=== PATIENT | female | born 1990 | race Caucasian/White ===

== ENCOUNTER 2019-02-22 08:52 | Emergency (ER) | payer OTHER ==
[~2019-02-22] VITALS: Ht 170.2 cm; Wt 56.0 kg
--- NOTE | 2019-02-22 09:00 | NUR ---
pt is uncooperative during assessment. pt pretending to be nonrsponsive and will start laughing. pt will not open eyes, pt will not verbalize needs or wants, pt will not ansr any questions. [place] closed. [place], police district switchboard operator at bedside
[2019-02-22 09:38] LABS: CLARITY,URINE SLIGHTLY CLOUDY (Clear); COLOR,URINE STRAW (Yellow); GLUCOSE, URINE NEGATIVE (Neg); KETONES,URINE NEGATIVE (Neg); LEUKOCYTE ESTERASE ,URINE MODERATE (Neg); NITRITES, URINE NEGATIVE (Neg); OCCULT BLOOD,URINE NEGATIVE (Neg); PROTEIN,URINE NEGATIVE (Neg); UROBILINOGEN,URINE 0.2 E.U/dL (0.2-1.0)
[2019-02-22 09:41] LABS: URINE HCG NEGATIVE (NEG)
[2019-02-22 09:48] LABS: BASOPHILS % (AUTO) 0.8 % (0-1); EOSINOPHILS % (AUTO) 0.1 % (0-6); HEMATOCRIT 41.1 % (35.0-45.0); LYMPHOCYTES # (AUTO) 1.3 X10'3 (1.1-4.8); MEAN CORPUSCULAR HEMOGLOBIN 32.1 PG (27.0-31.0); MEAN CORPUSCULAR HGB CONC 34.1 g/dL (33.0-36.5); MEAN CORPUSCULAR VOLUME 94.3 FL (78-98); MEAN PLATELET VOLUME 7.5 FL (7.4-10.4); MONOCYTES # (AUTO) 0.5 X10'3 (0-0.9); MONOCYTES % (AUTO) 12.9 % (2-12); NEUTROPHILS % (AUTO) 52.2 % (42-75); PLATELET COUNT 255 X10'3 (140-440); RED BLOOD COUNT 4.36 X10'6 (4.20-5.60); WHITE BLOOD COUNT 3.8 X10'3 (4.5-11.0)
[2019-02-22] MEDS ORDERED: haloperidol lactate 5mg/ml inj IM ONE (09:50)
[2019-02-22 09:51] LABS: UA COLLECTION TYPE STRAIGHT CATH
[2019-02-22 09:52] LABS: URINE AMPHETAMINE SCREEN NEGATIVE (Neg); URINE BARBITUATE SCREEN NEGATIVE (Neg); URINE BENZODIAZEPINES SCREEN NEGATIVE (Neg); URINE CANNABINOID SCREEN NEGATIVE (Neg); URINE COCAINE SCREEN NEGATIVE (Neg); URINE METHADONE SCREEN NEGATIVE (Neg); URINE OPIATE SCREEN NEGATIVE (Neg); URINE PHENCYCLIDINE SCREEN NEGATIVE (Neg)
[2019-02-22 10:06] LABS: BACTERIA,URINE 2+ /HPF (Neg); MUCUS STRANDS NONE SEEN /LPF (Neg); RBC,URINE NONE SEEN /HPF (0-2); SQUAMOUS EPITHELIAL CELL,UR FEW /LPF (FEW)
[2019-02-22 10:06] LABS: ALANINE AMINOTRANSFERASE 27 U/L (12-78); ALBUMIN 4.7 G/DL (3.4-5.0); ALBUMIN/GLOBULIN RATIO 1.5 (1.1-1.5); ALKALINE PHOSPHATASE 59 IU/L (46-116); ANION GAP 11 (8-16); ASPARTATE AMINO TRANSFERASE 29 U/L (10-37); BILIRUBIN,TOTAL 0.5 MG/DL (0.1-1.0); BLOOD UREA NITROGEN 8 MG/DL (7-18); BUN/CREATININE RATIO 15.4 (6.6-38.0); CALCIUM 9.3 MG/DL (8.5-10.1); CHLORIDE 101 MMOL/L (99-107); CREATININE 0.52 MG/DL (0.40-0.90); GLUCOSE 100 MG/DL (70-104); POTASSIUM 4.5 MMOL/L (3.5-5.1); SODIUM 137 MMOL/L (135-145); TOTAL CARBON DIOXIDE 25.4 MMOL/L (24-32); TOTAL PROTEIN 7.9 G/DL (6.4-8.2); eGFR > 90 ML/MIN
[2019-02-22 10:24] LABS: ACETAMINOPHEN < 2.0 UG/ML (10-30); ETHANOL < 0.010 GM/DL (0.0-0.010)
[2019-02-22] MEDS ORDERED: diphenhydrAMINE 50 mg/ml inj IM ONE (10:25)
[2019-02-22] MEDS ORDERED: OLANZapine **IM** 10 mg inj. IM ONE (10:25)
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
--- NOTE | 2019-02-22 13:35 | NUR ---
pt moved from bed 7 in main ER to bed 23 in overflow by casie De Paz, security present when changed into greens, restraints moved to [facility] in case of immediate need. was resistant to having clothing changed, required replacement of restraints x 4
--- NOTE | 2019-02-22 14:15 | NUR ---
Patient is calm and sleeping. Restraints removed. Continue to monitor.
--- NOTE | 2019-02-22 15:21 | NUR ---
Patient sleeping on right side. No distress observed. Continue to monitor.
--- NOTE | 2019-02-22 17:10 | NUR ---
Patient sleeping supine. No distress observed. Continue to monitor.
--- NOTE | 2019-02-22 19:00 | NUR ---
Pt resting in bed, respirations normal. No s/s of distress.
--- NOTE | 2019-02-22 20:00 | NUR ---
Pt woke up and requested to use phone. Currently speaking with friend Aleena. Dinner tray given.
--- NOTE | 2019-02-22 20:45 | NUR ---
Spoke to pt's friend, Aleena, on telephone and updated her per pt's request. Aleena will visit pt during visiting hours tomorrow.
[2019-02-23 06:14] VITALS: BP 98/46
--- NOTE | 2019-02-23 06:47 | NUR ---
Pt observed sleeping supine, no distress at this time. Will continue to monitor.
--- NOTE | 2019-02-23 08:33 | NUR ---
GIVING PRIMARY NURSE A BREAK, PT. IS LAYING IN BED STARRING AT THE CURTAINS.
--- NOTE | 2019-02-23 08:39 | NUR ---
PT. WALKED TO THE BATHROOM.
--- NOTE | 2019-02-23 10:10 | NUR ---
Pt observed talking to KASSY Kim. No distress observed. Will continue to monitor.
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
== END 2019-02-23 11:16 | disposition home or self-care (01) ==
LOC: ER 08:53
DX: F23 Brief psychotic disorder (principal); E03.9 Hypothyroidism, unspecified
CPT/HCPCS: 36415; 80053; 80305; 80320; 80329; 81001; 81025; 84443; 85025; 96372; 99285; J1200; J1630; J3490